=== PATIENT | male | born 1975 | race Caucasian/White ===

== ENCOUNTER 2017-06-27 23:27 | Emergency (ER) | payer SELFPAY ==
[~2017-06-27] VITALS: Ht 185.4 cm; Wt 90.0 kg
[2017-06-27 23:30] VITALS: BP 165/105; PULSE 79; RESP 18; TEMP 98.9; O2SAT 97
[2017-06-28 00:29] VITALS: BP 153/95; PULSE 73; RESP 18; O2SAT 96
--- NOTE | 2017-06-28 00:33 | PD ---
HPI Chief Complaint: Respiratory Symptoms Time Seen by Provider: 00:33 Travel History International Travel<30 days: No Contact w/Intl Traveler<30days: No Traveled to known affect area: No History of Present Illness HPI 41-year-old male came to the emergency room with history of dizziness which was sudden onset when he got out of the restaurant [employer]. He had to sit down again on the chair and the restaurant digital imaging specialist called 911. Patient was also complaining of some shortness of breath. He has history of hypertension and was treated in [place] 3 days ago for hypertension in the hospital. And says that he did not take medications as per the prescription direction since he left. However today he had not been feeling very well and he took one of his mother's Toprol that is a year old. His mother is . On route patient was given one nitroglycerin sublingually. Patient however denies of any chest pain history. Currently is complaining of some headache. But he says he feels otherwise better. Vital signs were overall within acceptable limits. [facility] Past Medical History Narrative Medical List of his past medical, surgical, social and family history is reviewed from the nursing note. Hypertension: Yes Influenza Vaccination: Yes Past Surgical History Surgical History: No Previous Surgery Social History Alcohol Use: Yes Tobacco Use: Yes Substance Use: No Allergies-Medications (Allergen,Severity, Reaction): Coded Allergies: No Known Allergies (Unverified , 06/27/17) Comments No known drug allergies. Reported Meds & Prescriptions Reported Meds & Active Scripts Active No Active Prescriptions or Reported Medications Narrative Medication List of his home medications reviewed from the nursing note. Review of Systems Except as stated in HPI: all other systems reviewed are Neg Respiratory: Positive: Shortness of Breath Neurologic: Positive: Dizziness Physical Exam Narrative GENERAL: Awake, alert, no obvious distress SKIN: Focused skin assessment warm/dry. HEAD: Atraumatic. Normocephalic. EYES: Pupils equal and round. No scleral icterus. No injection or drainage. ENT: No nasal bleeding or discharge. Mucous membranes pink and moist. NECK: Trachea midline. No JVD. CARDIOVASCULAR: Regular rate and rhythm. No murmur appreciated. RESPIRATORY: No accessory muscle use. Clear to auscultation. Breath sounds equal bilaterally. GASTROINTESTINAL: Abdomen soft, non-tender, nondistended. Hepatic and splenic margins not palpable. MUSCULOSKELETAL: No obvious deformities. No clubbing. No cyanosis. No edema. NEUROLOGICAL: Awake and alert. No obvious cranial nerve deficits. Motor grossly within normal limits. Normal speech. PSYCHIATRIC: Appropriate mood and affect; insight and judgment normal. Data Data Last Documented VS Orders Orders Ecg Monitoring (06/28/17 00:37) Iv Access Insert/Monitor (06/28/17 00:37) Oximetry (06/28/17 00:37) Sodium Chloride 0.9% Flush (Ns Flush) (06/28/17 00:45) Electrocardiogram (06/27/17 ) MDM Medical Decision Making Medical Screen Exam Complete: Yes Emergency Medical Condition: Yes Medical Record Reviewed: Yes Interpretation(s) Twelve-lead EKG was reviewed by me. Normal sinus rhythm, normal axis, nonspecific ST-T wave changes. Heart rate of 67 bpm. Differential Diagnosis PE, ACS, cardiac arrhythmia, intracranial bleed Narrative Course 1:15 AM after the orders were put in by me I was told shortly afterwards by the nurse that he wanted to leave and did not want any of the test to be performed. Patient understands the risk of leaving without having these test done. He is in full capacity to make decisions for himself. He signed AMA. Procedures EKG Prior to Arrival: Yes Diagnosis Primary Impression: Dizziness Additional Impression: Shortness of breath Scripts No Active Prescriptions or Reported Meds Disposition: 07 AGAINST MEDICAL ADVICE Condition: Serious Torres Orellana MD Jun 28, 2017 00:33
[2017-06-28] MEDS ORDERED: SODIUM CHLORIDE 0.9% FLUSH 10 ML FLUSH IVF PRN (00:45)
--- NOTE | 2017-06-28 15:56 | EKG ---
Date Performed: 06/27/2017 Time Performed: 23:35:51 PTAGE: 41 years EKG: Sinus rhythm WITH SINUS ARRHYTHMIA NORMAL ECG NO PREVIOUS TRACING DOCTOR: Afshin Ruth Interpretating Date/Time 06/28/2017 15:56:03
== END 2017-06-28 01:04 | disposition left against medical advice (07) ==
LOC: NEPE 23:27
DX: R42 Dizziness and giddiness (principal); R06.02 Shortness of breath; R51 Headache; Z72.0 Tobacco use
CPT/HCPCS: 93005; 99281